=== PATIENT | female | born 1985 | race African-American/Black ===

== ENCOUNTER 2021-12-05 04:01 | Observation (INO) ==
[2021-12-05] MEDS ORDERED: MORPHINE 2 MG/1 ML SYRINGE IV STA (04:54)
[2021-12-05] MEDS ORDERED: ONDANSETRON 4 MG/2 ML VIAL IV ONE (04:54)
[2021-12-05 05:05] LABS: Basophils % 0.6 % (0.0-0.8); Eosinophils # 0.1 10*3/uL (0.0-0.87); Eosinophils % 2.8 % (0.00-10.9); Immature Granulocytes % 0.4 %; Immature Granulocytes Absolute 0.02 #; Mean Corpuscular HGB Conc 28.6 GM/DL (32-36); Monocytes # 0.4 10*3/uL (0.11-0.8); Monocytes % 8.1 % (1.7-12.7); Neutrophils % 68.1 % (38.7-73.9); Platelet Count 218 T/CUMM (130-400); Red Blood Count 3.56 MC/CUMM (3.8-5.5); Red Cell Distribution Width 22.7 % (9.3-17.3)
[2021-12-05 05:34] LABS: Alanine Aminotransferase 22 U/L (13-56); Albumin 3.4 G/DL (3.4-5.0); Alkaline Phosphatase 62 U/L (45-117); Aspartate Amino Transferase 27 U/L (0-37); Bilirubin,Total < 0.39 MG/DL (0.20-1.00); Blood Urea Nitrogen 13 MG/DL (7-18); Calcium 8.7 MG/DL (8.5-10.1); Carbon Dioxide 25 MMOL/L (21-32); Chloride 108 MMOL/L (98-107); Glucose 97 MG/DL (74-106); Osmolality,Calculated 276.5 MOS/KG (273-304); Potassium 4.4 MMOL/L (3.5-5.1); Sodium 139 MMOL/L (136-145); Total Protein 7.8 G/DL (6.4-8.2)
[2021-12-05] MEDS ORDERED: ONDANSETRON 4 MG/2 ML VIAL IV PRN (05:56)
[2021-12-05] MEDS ORDERED: DEXTROSE 10% 250 ML BAG IV PRN (05:56)
[2021-12-05] MEDS ORDERED: GLUCAGON 1 MG VIAL IM PRN (05:56)
[2021-12-05] MEDS ORDERED: SODIUM CHLORIDE 0.9% 1,000 ML IV PRN (06:01)
[2021-12-05] MEDS: SODIUM CHLORIDE 0.9% 1,000 ML IV SCH ×2 (06:12→20:24)
[2021-12-05 07:00] LABS: % Iron Saturation 2.9 % (18-50); Ferritin 2.4 ng/mL (8-252)
[2021-12-05] MEDS: FERROUS SULFATE 325 MG TABLET PO SCH ×2 (09:10→20:25)
[2021-12-05] MEDS: PANTOPRAZOLE 40 MG TABLET PO SCH (09:10)
[2021-12-05] MEDS: DOCUSATE SODIUM 100 MG CAPSULE PO SCH ×2 (09:10→20:25)
[2021-12-05] MEDS ORDERED: ACETAMINOPHEN 500 MG TABLET PO STA (09:18)
[2021-12-05 17:12] LABS: Hematocrit 27.3 VOL% (35.7-47.0)
[2021-12-05 17:15] LABS: Hemoglobin 8.4 GM/DL (12.0-16.0)
[2021-12-06 07:41] LABS: Basophils % 0.8 % (0.0-0.8); Eosinophils # 0.2 10*3/uL (0.0-0.87); Eosinophils % 5.4 % (0.00-10.9); Hemoglobin 7.7 GM/DL (12.0-16.0); Immature Granulocytes % 0.5 %; Immature Granulocytes Absolute 0.02 #; Lymphocytes # 1.1 10*3/uL (1.4-4.0); Mean Corpuscular HGB Conc 30.8 GM/DL (32-36); Mean Corpuscular Volume 62.8 FL (87-102); Monocytes # 0.3 10*3/uL (0.11-0.8); Monocytes % 7.7 % (1.7-12.7); Neutrophils % 56.6 % (38.7-73.9); Platelet Count 178 T/CUMM (130-400); Red Blood Count 3.98 MC/CUMM (3.8-5.5); White Blood Count 3.9 T/CUMM (4-12)
[2021-12-06 07:51] LABS: Calcium 8.5 MG/DL (8.5-10.1); Osmolality,Calculated 275.4 MOS/KG (273-304)
[2021-12-06 07:54] VITALS: BP 96/66
[2021-12-06] MEDS ORDERED: IRON SUCROSE 200 MG in SODIUM CHLORIDE 0.9% 100 ML IV ONE (08:13)
[2021-12-06] MEDS: PANTOPRAZOLE 40 MG TABLET PO SCH (08:24)
[2021-12-06] MEDS: FERROUS SULFATE 325 MG TABLET PO SCH (08:25)
[2021-12-06] MEDS: DOCUSATE SODIUM 100 MG CAPSULE PO SCH (08:25)
[2021-12-06] MEDS: SODIUM CHLORIDE 0.9% 1,000 ML IV SCH (09:00)
[2021-12-06] MEDS ORDERED: FERRIC GLUCONATE COMPLEX 125 MG in SODIUM CHLORIDE 0.9% 100 ML IV ONE (10:00)
== END 2021-12-06 11:01 | disposition home or self-care (01) ==
LOC: SUATTDRO → N.EDINP 04:01 → N.ED 04:01 → N.3E 12:25
PROVIDERS: ADMIT Emergency Medicine; ATTEND Emergency Medicine